=== PATIENT | female | born 1970 | race Caucasian/White ===

== ENCOUNTER 2017-08-07 11:37 | Emergency (ER) | payer OTHER ==
[2017-08-07] MEDS: IBUPROFEN 600 MG TAB PO (14:59)
== END 2017-08-07 15:45 | disposition home or self-care (01) ==
LOC: FTE 11:37
DX: M75.32 Calcific tendinitis of left shoulder (principal)
CPT/HCPCS: 73030; 93005; 99284-25

== ENCOUNTER 2019-01-01 08:58 | Emergency (ER) | payer OTHER | END 2019-01-01 10:30 | disposition home or self-care (01) | LOC: FTE 08:58 | DX: L65.9 Nonscarring hair loss, unspecified (principal); L29.9 Pruritus, unspecified | CPT/HCPCS: 99283; Z7502 ==